=== PATIENT | male | born 1990 | race Caucasian/White ===

== ENCOUNTER 2021-06-21 13:34 | Outpatient (CLI) | payer MEDICARE, MEDICAID, SELFPAY ==
--- NOTE | 2021-06-21 | ECHO_ITS ---
Patient Info Name: Calvin Alvarado Age: 31 years : 1990 Gender: Male Ht: 68 in Wt: 170 lbs BSA: 1.94 m2 HR: 78 bpm BP: 120 / 81 mmHg Heart Rhythm: Sinus Rhythm Technical Quality: Good Exam Date: 06/21/2021 2:26 PM Exam Location: [facility] Patient Status: Outpatient Admit Date: 06/21/2021 Staff Ordering Physician: Soraida, Jennifer NDIAYE Md Urologist: Mary Lou Daniels RDCS Attending Provider: Rae, Jennifer NDIAYE Exam Type: CA echo doppler color flow Study Info Indications R94.2 - ABNORMAL RESULTS OF PULMONARY FUNCTION TEST Complete two-dimensional, color flow and Doppler transthoracic echocardiogram is performed. Summary 1. Complete two-dimensional, color flow and Doppler transthoracic echocardiogram is performed. 2. Left ventricular chamber dimension is normal. 3. Left ventricular systolic function is normal, estimated at 60-65%. 4. There is no increased left ventricular wall thickness. 5. The left ventricular diastolic function is normal. 6. There is mild pulmonic regurgitation. Left Ventricle Left ventricular chamber dimension is normal. Left ventricular systolic function is normal, estimated at 60-65%. There is no increased left ventricular wall thickness. The left ventricular diastolic function is normal. Right Ventricle Right ventricular chamber dimension is normal. Right ventricular systolic function is normal. Left Atria Left atrial chamber dimension is normal. Right Atria Right atrial chamber dimension is normal. Atrial Septum Intact interatrial septum visualized by color flow imaging. Aortic Valve The aortic valve is trileaflet. There is no aortic valve sclerosis. There is no aortic valve stenosis. There is trace aortic valve regurgitation. Pulmonic Valve The pulmonic valve is normal. There is no pulmonic valve stenosis. There is mild pulmonic regurgitation. Mitral Valve The mitral valve has normal leaflets. There is no mitral valve stenosis. There is trace mitral valve regurgitation. Tricuspid Valve The tricuspid valve leaflets are normal. There is no significant tricuspid valve stenosis. There is trace tricuspid valve regurgitation. No pulmonary hypertension, estimated pulmonary arterial systolic pressure is 24 mmHg. Pericardium/Pleural The pericardium appears epicardial fat pad. There is trivial pericardial effusion. Inferior Vena Cava Normal inferior vena cava with >50% collapse upon inspiration consistent with normal right atrial pressure, 10 mmHg. Aorta The aortic root size at the sinus of Valsalva is normal. Left Ventricular Outflow Tract Name Value Normal LVOT 2D LVOT Diameter 2.0 cm LVOT Doppler LVOT Peak Gradient 3 mmHg LVOT Mean Gradient 2 mmHg LVOT VTI 17 cm LVOT VTI/AV VTI Ratio 0.9 LVOT Stroke Volume 53 ml LVOT CO 4.4 l/min LVOT CI 2.3 l/min/m2 Pulmonic Valve
== END 2021-06-21 13:35 | disposition home or self-care (01) ==
LOC: ANHCARD 13:57
PROVIDERS: Visit Provider Nurse Practitioner
DX: R94.2 Abnormal results of pulmonary function studies (principal); I37.1 Nonrheumatic pulmonary valve insufficiency
CPT/HCPCS: 93306

== ENCOUNTER 2021-08-31 07:47 | Outpatient (CLI) | payer MEDICARE, MEDICAID, SELFPAY ==
--- NOTE | 2021-09-10 12:58 | WPDSLEEPSTUD ---
Sleep Study Date of Study: 08/31/21 Ordering Provider: Jennifer Quigley, [facility] Interpreting Physician: Margot Black MD Sleep Study Type: ASV Height: 1.7 m Weight: 83.915 kg Body Mass Index: 29.0 Neck Circumference (inches): 16 [place]: 13 Reason for Sleep Study * 06/21/2021 echo : Left ventricular systolic function is normal, estimated at 60-65%. * 03/20/2021 - repeat PAP titration; Central apneas emerged at a CPAP of 12 and persisted at 14 cm. He was switched to BiPAP. BiPAP started 07/11 and reached 16/12 at 16/12 the AHI was 7 using his own Respironics medium Nuance nasal pillows with chinstrap, his own mask and strap. * 11/2019 - Difficult titration without an optimal pressure to achieve apnea-hypopnea index below 5 Sleep History Calvin Alvarado is a 31-year-old male with a history of sleep apnea currently on BiPAP nightly. His office note 08/08/2021 Jennifer Quigley, [facility] pulmonary and sleep medicine indicates that he is using BiPAP at 16/12 however his apnea-hypopnea index remains elevated at 17.1 despite nightly use. He wakes up throughout the night and has a difficult time waking in the morning. He rarely awakens from sleep feeling short of breath. He does not awake at night with heartburn, belching or coughing. He rarely snores while using BiPAP. It is not loud. He occasionally has trouble sleeping with a cold. He rarely wakes up gasping for breath at night. He rarely has breathing problems at night observed by others. He constantly sweats excessively at night. He occasionally notices his heart pounding or beating irregularly at night. He rarely falls asleep during the day, occasionally falls asleep involuntarily. He never falls asleep while driving. Does not have loss of muscle tone with strong emotion. He does not have daytime difficulties due to excessive sleepiness. He rarely feels paralyzed on waking or falling asleep. He occasionally has vivid dreamlike scenes upon awakening or falling asleep. He never feels afraid to go to sleep. He rarely has nightmares. He frequently remembers his dreams. He does not have racing thoughts. He does not have feelings of sadness depression or anxiety. Does not have muscular tension or notices parts of his body jerking. He rarely kicks at night. Does not have crawling or aching feelings in his legs or any kind of leg pain at night. He denies morning jaw pain. He rarely grinds his teeth during sleep. He does not bothered by pain during the day and is not awakened by pain during the night. He occasionally wakes up feeling stiff in the morning, rarely wakes up with sore achy muscles are pain in the neck and spine. He has fatigue and palpitations. Normal bedtime is 10:00 p.m. falling asleep within 45 minutes, typically waking 3-4 times at night to urinate or maybe get a drink. He is able to return to sleep within 5-10 minutes. He wakes the morning at 7:00 a.m.. On the weekends he stays awake later, 12 midnight and wakes around 10:00 a.m.. He estimates getting on average 8 hours of sleep at night he takes naps in the afternoon or evening. A short nap lasting 10 or 15 minutes is not refreshing. He is usually drowsy in the morning for 1 hour longer. He feels better in the afternoon compared to other times of day. Habits: Nver smoked tobacco. Caffeine 3 servings a day. No alcohol or recreational drugs. [facility] Past Medical History Medical History (Updated 09/12/21 @ 13:32 by Margot Black MD) Dyspnea Hypertension Mixed sleep apnea (~08/2021) Obstructive sleep apnea Restrictive pattern present on pulmonary function testing Social History Social History (Updated 09/11/21 @ 12:20 by Margot Black MD) Smoking status: Never smoker Medications Medications: His office note indicates the patient takes amlodipine 2.5 mg a day and dipyridamole 25 mg a day although none were listed on his sleep questionnaire Sleep Procedure This test was performed using the Sa
[2021-09-12 13:08] VITALS: BMI 29.0
== END 2021-09-01 06:47 | disposition home or self-care (01) ==
LOC: ANHCSM 07:48
PROVIDERS: PCP Nurse Practitioner; Visit Provider Nurse Practitioner
DX: G47.39 Other sleep apnea (principal); Z68.29 Body mass index [BMI] 29.0-29.9, adult
CPT/HCPCS: 95811